=== PATIENT | male | born 1960 | race American Indian/Alaskan Native ===

== ENCOUNTER 2024-09-28 18:56 | Inpatient (IN) | payer OTHER ==
[~2024-09-28] VITALS: Ht 177.8 cm; Wt 72.6 kg
[2024-09-28] MEDS ORDERED: ZESTRIL2.5 MG (19:42)
[2024-09-28] MEDS ORDERED: AMLODIPINE-OLM1 EAC2 (19:43)
--- NOTE | 2024-09-28 19:43 | NUR ---
PTE LLEGA AMBULANDO EN COMPANIA DE FAMILIAR CON FALTA DE AIRE,PRESENTA USO DE MUSCULOS ACCESORIOS Y NO HABLA EN ORACIONES COMPLETAS,REFIERE SINTOMAS COMENZARON CITLALLI,HX COPD.
--- NOTE | 2024-09-28 19:44 | NUR ---
SE UBICA EN AREA DE CRITICO,SE COLOCA CANULA NASAL @ 2LTS Y SE NOTIFICA A DR BECKMAN.
[2024-09-28] MEDS ORDERED: 0.9 % SODIUM CHLORIDE 1,000 ML IV SCH (19:45)
[2024-09-28] MEDS ORDERED: METHYLPREDNISOLONE SOD SUCC 125 MG VIAL IV ONE (19:45)
[2024-09-28] MEDS ORDERED: LEVALBUTEROL HCL 1.25 MG/3 ML SOLUTION IH SCH (19:45)
[2024-09-28] MEDS ORDERED: LEVALBUTEROL HCL 1.25 MG/3 ML SOLUTION IH ONE (19:49)
[2024-09-28] MEDS ORDERED: METHYLPREDNISOLONE SOD SUCC 125 MG VIAL ONE (19:49)
[2024-09-28 20:04] LABS: ABG PH 7.414 (7.35-7.45); ABG pCO2 35.4 mmHg (35-45); BASE EXCESS -1.8 mmol/l; BICARBONATE 22.1 mmol/l (23-25); SaO2 89.4 %; Tco2 23.2 mmol/l
[2024-09-28 20:05] LABS: HEMOGLOBIN 16.2 g/dL (13-16.00); MEAN CELL VOLUME 90.5 fL (80.0-100.00); MEAN CORPUSCULAR HEMOGLOBIN 31.8 pg (27.00-32.0); MEAN CORPUSCULAR HGB CONC 35.1 g/dl (32.0-36.0); PLATELET COUNT 292 K/uL (150-450); RED BLOOD COUNT 5.09 M/uL (4.00-6.00); RED CELL DISTRIBUTION WIDTH 14.2 % (11.5-14.5)
[2024-09-28 20:27] LABS: ALBUMIN 3.9 gm/dL (3.4-5.0); BILIRUBIN TOTAL 0.61 mg/dL (0.3-1.2); CALCIUM 8.9 mg/dL (8.5-10.1); CREATININE SERUM 0.89 mg/dL (0.70-1.30); GFR 85.52; GLOBULINA 3.5 G/DL (2.4-3.5); POTASSIUM 3.45 mEq/L (3.5-5.1); TOTAL PROTEIN 7.4 gm/dL (6.4-8.2)
[2024-09-28 20:45] LABS: ABG PO2 56.6 mmHg (80-100); allen test SATISFACTORY; mode NASAL CANNULA; o2 28 %; puncture site RADIAL RIGHT
[2024-09-28 21:10] LABS: COVID-19 AG NEGATIVE (NEGATIVE)
[2024-09-28 21:11] LABS: INFLUENZA A AG NEGATIVE (NEGATIVE)
[2024-09-28] MEDS ORDERED: CEFTRIAXONE SODIUM 2,000 MG VIAL IV ONE (21:30)
[2024-09-28] MEDS ORDERED: CEFTRIAXONE SODIUM 2,000 MG VIAL ONE (21:32)
[2024-09-28 21:47] LABS: PH,URINE 5.5 (5.0-8.0); URINE APPEARANCE Clear; URINE BILIRRUBIN Negative (NEGATIVE); URINE BLOOD Negative; URINE COLOR Yellow; URINE GLUCOSE Negative (NEGATIVE); URINE KETONE Negative (NEGATIVE); URINE LEUKOCYTE Trace; URINE NITRATE Negative; URINE PROTEIN Negative (NEGATIVE); URINE UROBILINOGEN 0.2 E.U./dl
[2024-09-28 21:51] LABS: URINE BACTERIA 6.1 uL (0.0-1933); URINE WBC 9.2 uL (0.0-23.2)
--- NOTE | 2024-09-28 21:53 | NUR ---
SE RECIBE PACIENTE MASCULINO ALERTA Y ORIENTADO X3, SE COLOCA EN LA CAMA #1 CON BARANDAS ELEVADAS. SE CONECTA A MONITOR CARDIACO, OXIMNETRIA DE PULSO Y UN VENTURY MASK AL 35%. SE REALIZA VENOPUNCION EN EL BRAZO DERECHO Y SE CANALIZA CON ANGIO #18 Y SE LE COLOCA 0.9 NSS 1,000 BAJANDO A 80ML/HR PATENTE PARMJIT DE EDEMA Y ENROJECIMINETO. SE LE COLE LAS MUETRAS Y SE LE ADMINISTRAN LOS MEDICAMENTOS AGUSTIN LA ORDEN MEDICA. SE OBSERVA POR CAMBIOS.
[2024-09-28 21:54] LABS: URINE EPITHELIAL CELLS 0.6 uL (0.0-38.8); URINE RBC 0.7 uL (0.0-20.8)
--- NOTE | 2024-09-28 23:14 | NUR ---
SE RECIBE PTE ALERTA Y ORIENTADO X3 EN CAMA #1 EN LA UNIDAD DE CRITICO CON BARANDAS ELEVADAS Y FRENOS POR SEGURIDAD. SE OBSERVA PTE CON BUEN PATRON RESPIRATORIO, ASISITIDO CON VENTURY MASK AL 35%, EL CUAL TOLERA AL MOMENTO, PTE CONECTADO A MONITOR CARDIACO Y OXIMETRIA DE PULSO CONTINUA PRESENTANDO SIGNOS VITALES YA REPORTADOS EN SISTEMA. CANALIZACION EN BRAZO DERECHO CON ANGIO #18, EL CUAL ESTA PATENTE, PARMJIT DE EDEMA Y ERITEMA, RECIBIENDO 0.9%NSS BAJANDO A 80 MLS/HR AGUSTIN ORDEN MEDICA. ABDOMEN BLANDO Y DEPRESIBLE AL TACTO, ORINANDO DE MANERA ESPONTANEA CON AYUDA DE URINAL. EXTREMIDADES INFERIORES LIBRES DE HALLAZGO RELEVANTE. SE MANTIENE BAJO OBSERVACION.
[2024-09-29] VITALS (9 sets, daily range): BP systolic 99–139; BP diastolic 48–76; O2SAT 91–100
[2024-09-29] MEDS ORDERED: AZITHROMYCIN 500 MG in DEXTROSE 5 % IN WATER 250 ML IV SCH (00:01)
[2024-09-29] MEDS ORDERED: MONTELUKAST SODIUM 10 MG TABLET PO SCH (00:15)
[2024-09-29] MEDS ORDERED: ACETAMINOPHEN 500 MG GEL..CAP PO PRN (00:15)
[2024-09-29] MEDS ORDERED: 0.9 % SODIUM CHLORIDE 1,000 ML IV SCH (00:15)
[2024-09-29] MEDS ORDERED: LEVALBUTEROL HCL 1.25 MG/3 ML SOLUTION IH SCH (01:00)
[2024-09-29] MEDS ORDERED: METHYLPREDNISOLONE SOD SUCC 40 MG VIAL IV SCH (01:00)
[2024-09-29] MEDS ORDERED: GUAIFEN/DEXTROMETHORPHAN/PE 10 ML BLIST.PACK PO SCH (01:00)
[2024-09-29] MEDS ORDERED: IPRATROPIUM BROMIDE 0.5 MG/2.5 ML AMPUL.NEB IH SCH (01:00)
[2024-09-29] MEDS ORDERED: GUAIFEN/DEXTROMETHORPHAN/PE 10 ML BLIST.PACK PO ONE ×2 (01:44→05:06)
[2024-09-29] MEDS ORDERED: LEVALBUTEROL HCL 1.25 MG/3 ML SOLUTION IH ONE ×3 (01:44→05:05)
[2024-09-29] MEDS ORDERED: IPRATROPIUM BROMIDE 0.5 MG/2.5 ML AMPUL.NEB IH ONE ×3 (01:44→05:06)
[2024-09-29] MEDS ORDERED: METHYLPREDNISOLONE SOD SUCC 40 MG VIAL ONE (01:44)
[2024-09-29] MEDS ORDERED: AZITHROMYCIN 500 MG VIAL IV ONE (01:44)
[2024-09-29 01:45] LABS: INR 1.03; PARTIAL THROMBOPLASTIN TIME 27.3 SECONDS (22.0-34.0); PROTHROMBIN TIME 11.2 SECONDS (9.0-11.5)
[2024-09-29] MEDS ORDERED: WATER FOR INJ.,BACTERIOSTATIC 30 ML VIAL IJ ONE (01:45)
[2024-09-29 02:33] LABS: C-REACTIVE PROTEIN 5.07 MG/DL (0.00-0.29); PHOSPHOROUS 3.2 mg/dL (2.5-4.9)
[2024-09-29 02:44] LABS: COVID-19 AG NEGATIVE (NEGATIVE)
[2024-09-29] MEDS ORDERED: ENOXAPARIN SODIUM 40 MG/0.4 ML SYRINGE SUBCUTANEO SCH (09:00)
[2024-09-29] MEDS ORDERED: LISINOPRIL 2.5 MG TABLET PO SCH (09:00)
[2024-09-29] MEDS ORDERED: AMLODIPINE BESYLATE 5 MG TABLET PO SCH (09:00)
[2024-09-30 01:19] VITALS: BP 94/53; O2SAT 100
[2024-09-30 08:36] VITALS: BP 127/75; O2SAT 95
[2024-09-30] MEDS ORDERED: METHYLPREDNISOLONE SOD SUCC 40 MG VIAL IV SCH (17:00)
[2024-09-30] MEDS ORDERED: AZITHROMYCIN 500 MG VIAL IV SCH (17:00)
== END 2024-09-30 14:03 | disposition left against medical advice (07) | DRG 192 ==
LOC: ER 20:13 → ICU-2 09-29 03:22 → MEDI 09-29 03:22
PROVIDERS: General Practice; ADMIT Internal Medicine; ATTEND Internal Medicine
PROC: 4A033R1 Measurement of Arterial Saturation, Peripheral, Percutaneous Approach (ICD-10-PCS; principal; 2024-09-29)
PROC: 3E0F7GC Introduction of Other Therapeutic Substance into Respiratory Tract, Via Natural or Artificial Opening (ICD-10-PCS; 2024-09-29)
PROC: B24DZZZ Ultrasonography of Pediatric Heart (ICD-10-PCS; 2024-09-29)
DX: J44.1 Chronic obstructive pulmonary disease with (acute) exacerbation (principal); Z20.822 Contact with and (suspected) exposure to COVID-19; Z53.29 Procedure and treatment not carried out because of patient's decision for other reasons